=== PATIENT | male | born 2000 | race Caucasian/White ===

== ENCOUNTER 2021-04-10 16:34 | Emergency (ER) | payer OTHER ==
[2021-04-10 17:28] VITALS: BP 120/68; PULSE 64; TEMP 97.7; BMI 25.1
[2021-04-10] MEDS ORDERED: IBUPROFEN 600 MG TABLET (FP) PO ONE ×2 (18:44→18:46)
== END 2021-04-10 19:40 | disposition home or self-care (01) ==
LOC: JERFT 16:34
DX: S99.921A Unspecified injury of right foot, initial encounter (principal); W19.XXXA Unspecified fall, initial encounter
CPT/HCPCS: 73610-TC-RT-FY; 73630-TC-RT-FY; 99283-25

== ENCOUNTER 2021-04-18 19:04 | Emergency (ER) | payer OTHER ==
[2021-04-18 19:47] VITALS: BP 127/78; PULSE 89; TEMP 100.3; BMI 24.8
[2021-04-18] MEDS ORDERED: ACETAMINOPHEN 325 MG TABLET (FP) PO ONE (19:50)
[2021-04-18] MEDS ORDERED: ACETAMINOPHEN 325 MG TABLET (FP) ONE (20:24)
[2021-04-20 17:07] LABS: SARS-CoV-2 NAA Detected (Not Detected)
== END 2021-04-18 20:20 | disposition home or self-care (01) ==
LOC: JER 19:04
DX: R53.81 Other malaise (principal); R09.81 Nasal congestion; R05.1 Acute cough
CPT/HCPCS: 87804; 99283-25; C9803-CS; U0003; U0005